=== PATIENT | male | born 1960 | race Caucasian/White ===

== ENCOUNTER 2019-04-05 21:17 | Emergency (ER) | payer SELFPAY ==
[2019-04-05] VITALS (21 sets, daily range): BP systolic 87–133; BP diastolic 51–88; PULSE 101–140; RESP 18–48; TEMP 33.2–35.3; O2SAT 70–100
--- NOTE | 2019-04-05 21:30 | ED.GENADULT ---
HPI - General Adult General Chief complaint: Shortness of Breath/Dyspnea Stated complaint: Shortness of breath Time Seen by Provider: 04/05/19 21:29 Source: EMS Mode of arrival: EMS Limitations: no limitations History of Present Illness HPI narrative: Acutely ill 58-year-old man presents by medics. Acute respiratory distress hypothermic unable to speak due to respiratory distress. His helps with history. Apparently he has been declining over the last month and has lost between 10 and 15 lb. He was seen by his primary care physician approximately 2 weeks ago and started on 2 L of oxygen for his severe COPD. He has managed to quit smoking. Over the 2 weeks he has continued to decline. The did have an appointment to see a physician last week but were unable to make that due to snow. His has wanted him to come to the emergency room for a number of days and he has declined. She decided to call 911 today as he continued to obviously worsen. BiPAP this started upon arrival. Tried to discuss code status. His mental status is altered enough that he is unable to carry on this conversation. His is not sure what he would say but thinks that likely would not like significant intervention. Will continue to address this is we are proceeding with his emergency department resuscitation Related Data Home Medications Medication Instructions Recorded Confirmed albuterol sulfate [Ventolin HFA] 2 puff INHALATION 6XD PRN 04/05/19 04/05/19 guaifenesin [Mucinex] 1,200 mg PO BID 04/05/19 04/05/19 Allergies Allergy/AdvReac Type Severity Reaction Status Date / Time codeine Allergy Unknown Verified 04/05/19 21:20 Review of Systems Review of Systems Narrative: Acutely altered mental status ROS Unobtainable: Unobtainable due to medical condition Patient History Medical History COPD (chronic obstructive pulmonary disease) (Acute) Fatigue (Acute) Palpitations (Acute) Social History Smoking Status: Former smoker Smoking Status: Former smoker Exam Narrative Exam Narrative: Presents with significant respiratory distress, unable to speak, significant weakness and altered mental status. Is cachectic, pale and extraordinarily cold to the touch. H EENT: Productive cough with sputum in around his yanez. Pupils are midposition equal and minimally reactive. No cervical adenopathy. Right earlobe has a 2 cm cyst Neck: No jugular venous distension Chest: Significantly diminished breath sounds on the right side with diffuse wheeze and extraordinarily poor air movement throughout all lung velásquez. He is using all accessory muscles to breathe and unable to speak Cardiac: Tachycardia, regular, distant heart sounds Abdomen: Nontender, no obvious hepatomegaly, no bowel tones Flank; no pain to palpation bilaterally Back spine pelvis: No evidence of trauma. Skin: Pale, dusky extremities with mottling noted Neuro: Acutely altered mental status, he is moving all extremities Extremities: 2+ bilateral lower extremity edema, very pale, poor perfusion Initial Vital Signs Initial Vital Signs: Vital Signs Temperature 91.7 F L 04/05/19 21:17 Pulse Rate 117 H 04/05/19 21:17 Respiratory Rate 28 H 04/05/19 21:17 Blood Pressure 111/51 L 04/05/19 21:17 Procedures Central Line Placement Right IJ: Additional Comments: Right internal jugular central line placed by Dr. Barajas, surgeon. Ultrasound guidance used. Postprocedure x-ray suggests that the line is in to the atrium and possibly into the inferior vena cava. Line is pulled back 3 cm after chest x-ray is viewed and redressed Chest Tube Chest Tube 1: Chest Tube Location: right Progress: Chest tube placed by Dr. Barajas, surgeon, for empyema. Postprocedure x-ray reveals tube in appropriate location with approximately 2-3 L of puritic/bloody pleural fluid returned [facility] [place] Name of Procedure: Right-sided thoracentesis Time out performed: Yes Technique/Description of procedure performed: Ultrasound-guided right thoracentesis for diagnostic and therapeutic purposes Area was identified with ultrasound after reviewing chest x-ray. Prepped and draped in a sterile manner. 3 cc of lidocaine is infiltrated into the skin down to the pleura. Thoracentesis needle is easily introduced into the large fluid collection. 1200 cc of bloody purulence at pleural fluid is returned. It is sent for culture, Gram stain, cytology. He tolerated the procedure well, breathing was easier postprocedure. Postprocedure chest x-ray indicates slightly more lung expansion, no pneumothorax and still large volume of fluid in the right side of the chest Patient tolerated procedure: Well and No complications Course Course Course Narrative: 58-year-old gentleman in acute respiratory distress presents to the emergency room. On initial presentation he is significantly cold, mottled, has altered mental status and appears cachectic. His notes that he has been worsening for the past 2 weeks and has not want to have any intervention. When he family became minimally responsive she was able to call [address] him immediately on BiPAP which he tolerated quite well. Also had a clear discussion of code status with both the patient and his . His altered mental status did not allow him to participate. She felt that he probably would not want have any extraordinary interventions such as CPR or intubation but she was not willing to make a final decision and he was unable to meaningfully participate in the discussion. Which shared decision making with the we opted to try aggressive treatments outside of intubation initially and reassess. Initial presumption was sepsis from a pulmonary source. Sepsis protocol was initiated with broad-spectrum antibiotics and large volumes fluid resuscitation. Because he was so cold the Wild catheter with temperature monitor was placed. Initial temperature was 33? C. a [place] was placed and warm fluids were used for initial resuscitation. He continued to tolerate BiPAP well. Initial ABG revealed a pH of 7.13 with a CO2 of 100 consistent with his overall clinical presentation and altered mental status. Oxygenation was not an issue and minimal oxygen supplementation only was required to keep saturations in the mid 90s. He did respond nicely to the 1st 2 L of fluid, rewarming and BiPAP. As labs and diagnostic studies began to return. His chest x-ray was noted to have a large right pleural effusion essentially occluding the entire right thorax. Decision was made to perform a diagnostic and therapeutic thoracentesis. Please see procedure note. Fluid was obviously purulence as well as bloody. Clearly an empyema with concern for neoplasm as well. Fluid was sent for culture Gram stain and cytology. Labs were further reviewed and indicated hyperkalemia, hyponatremia, acute renal failure and lactic acid of 2.4. At this time he was continuing to respond to BiPAP, core temperature had improved, he was slightly more responsive, and blood pressure was maintaining systolics in the 90s. He continued to be tachycardic with an atrial flutter. 10 mg of diltiazem was given to see if rate control would be helpful. It did bring his rate down into the 120s and did not significantly affect blood pressure. The large empyema was reviewed with Dr. Barajas, surgeon. He agreed to place a chest tube in anticipation of transfer. Due to acuity in the rest of the department he also graciously agreed to place a central line. Attempts were begun to find an appropriate bed for this gentleman. Spoke with the night hospitalist at [facility] and she felt that his level of care would necessitate transfer. Beds were not available at [facility] in [facility] in [place]. Bed was available at [facility] in [place]. Spoke with Dr. Álvarez, documentation spec, at 1:23 a.m. he accepted the patient. Repeat ABG showed slightly improved pH to 7.24 with a CO2 down to 62.9 however patient was appearing to be more fatigued. In light of extended transport we opted to proceed with intubation prior to transport. 7.5 tube with placed without difficulty. Blood pressure continued to decline despite 5 L of normal saline. Minimal urine output with Wild catheter in place. Fluid is changed to LR and continued and norepinephrine is started for pressure control. [facility] transport is available and report is shared. Findings, care and plan are all reviewed with his prior to transport. At this time he remains full code. He is in critical condition with Central Line, Pressors, fluid resuscitation,antibiotics and chest tube, right side, all in place at time of transfer Decision to Admit Date: 04/05/19 Decision to Admit time: 23:02 Additional Information: Critical Care Time 67 minutes: Critical care time is separate from other billable procedures. This critical care time includes consultation with family and other consulting doctors, review of records, and interpretation of data from labs, EKGs and imaging as well as managements of acute respiratory failure, altered mental status, sepsis, acute renal failure, hyperkalemia, hypothermia, empyema, atrial flutter with rapid ventricular response, hypotension Orders Ordered: ED Orders 04/05/19 21:20 Complete Blood Count AUTO DIFF Stat Procalcitonin Stat Troponin & CK Cardiac Panel Stat 04/05/19 21:33 Arterial Blood Gas Stat BiPAP Ventilatory Support RT PROTOCOL 04/05/19 21:34 XR chest 1V Stat 04/05/19 21:43 Arterial Blood Gas Stat 04/05/19 21:45 Comprehensive Metabolic Panel Stat Lactate (Lactic Acid) Stat 04/05/19 21:46 Urinalysis and Microscopic Stat Urine Culture Stat 04/05/19 21:50 Blood Culture Stat 04/05/19 22:55 Body Fluid Culture Stat 04/05/19 23:41 XR chest 1V Stat 04/06/19 XR chest 1V Stat 04/06/19 00:51 Arterial Blood Gas Stat 04/06/19 01:01 Arterial Blood Gas Stat Discontinued Medications Albuterol/Ipratropium (Duoneb) 3 ml INH NOW ONE Stop: 04/05/19 22:09 Last Admin: 04/05/19 22:09 Dose: 3 ml Documented by: PACO Albuterol/Ipratropium (Duoneb) 3 ml INH NOW ONE Stop: 04/05/19 22:08 Last Admin: 04/05/19 22:10 Dose: 3 ml Documented by: PACO Albuterol/Ipratropium (Duoneb) 3 ml INH NOW ONE Stop: 04/05/19 22:09 Last Admin: 04/05/19 22:10 Dose: 3 ml Documented by: PACO Diltiazem HCl (Cardizem) 10 mg IV NOW ONE Stop: 04/05/19 23:51 Last Admin: 04/05/19 23:53 Dose: 10 mg Documented by: LEILA Diltiazem HCl (Cardizem) 10 mg IV NOW ONE Stop: 04/05/19 23:51 Last Admin: 04/06/19 01:02 Dose: Not Given Documented by: LEILA Sodium Chloride (Normal Saline 0.9%) 2,354.13 mls @ 784.71 mls/hr 30 ml/kg infuse over 3 hr (2354.13 ml) IV NOW ONE Stop: 04/06/19 00:32 Last Infusion: 04/06/19 02:48 Dose: 0 mls/hr Documented by: Admin: 04/05/19 21:56 Dose: 784.71 mls/hr Documented by: KOREY Cefepime HCl 2 gm/ Sodium (Chloride) 100 mls @ 200 mls/hr IV NOW ONE Stop: 04/05/19 21:34 Last Admin: 04/05/19 23:25 Dose: Not Given Documented by: LEILA Piperacillin/Tazobactam/Dextrose (Zosyn) 3.375 gm in 50 mls @ 100 mls/hr IV NOW ONE Stop: 04/05/19 23:09 Last Infusion: 04/05/19 23:25 Dose: 0 mls/hr Documented by: Admin: 04/05/19 22:47 Dose: 100 mls/hr Documented by: DAVIAN Sodium Chloride (Normal Saline 0.9%) 1,000 mls @ 1,000 mls/hr IV BOLUS ONE Stop: 04/06/19 01:49 Last Infusion: 04/06/19 02:49 Dose: 0 mls/hr Documented by: Admin: 04/06/19 01:46 Dose: 1,000 mls/hr Documented by: JACK Norepinephrine Bitartrate 4 mg (/ Dextrose) 254 mls @ 30.48 mls/hr IV TITRATE DAWNA; Protocol Last Admin: 04/06/19 01:46 Dose: 8 mcg/min, 30.48 mls/hr Documented by: JAKC Sodium Chloride (Normal Saline 0.9%) 1,000 mls @ 1,000 mls/hr IV BOLUS ONE Stop: 04/06/19 02:28 Last Infusion: 04/06/19 02:50 Dose: 0 mls/hr Documented by: Admin: 04/06/19 01:46 Dose: 1,000 mls/hr Documented by: JACK Lorazepam (Ativan) 0.5 mg IV NOW ONE Stop: 04/05/19 22:53 Last Admin: 04/05/19 22:40 Dose: 0.5 mg Documented by: LEILA Vital Signs Vital signs: Vital Signs - 8 hr 04/05/19 21:17 04/05/19 21:20 04/05/19 21:30 Temperature 91.7 F L 92.1 F L Pulse Rate 117 H 117 H 127 H Respiratory Rate 28 H 48 H 29 H Blood Pressure 111/51 L Blood Pressure [Right Arm] 111/51 L Pulse Oximetry 70 L 04/05/19 21:35 04/05/19 21:40 04/05/19 21:50 Temperature 93.6 F L 94.4 F L Pulse Rate 129 H 129 H Respiratory Rate 28 H 23 Blood Pressure 101/72 Blood Pressure [Right Arm] 106/74 107/74 Pulse Oximetry 100 94 04/05/19 22:00 04/05/19 22:11 04/05/19 22:15 Temperature 94.5 F L 94.5 F L Pulse Rate 133 H 134 H 101 H Respiratory Rate 28 H 30 H 33 H Blood Pressure 94/75 Blood Pressure [Right Arm] 103/88 102/73 133/84 Pulse Oximetry 98 99 95 04/05/19 22:18 04/05/19 22:29 04/05/19 22:40 Temperature 94.6 F L 94.7 F L Pulse Rate 138 H 132 H 134 H Respiratory Rate 38 H 33 H Blood Pressure Blood Pressure [Right Arm] 102/73 94/75 96/68 Pulse Oximetry 99 100 96 04/05/19 22:50 04/05/19 23:00 04/05/19 23:10 Temperature 94.8 F L 95 F L 95.2 F L Pulse Rate 136 H 136 H 137 H Respiratory Rate 34 H 35 H 41 H Blood Pressure Blood Pressure [Right Arm] 87/69 L 101/70 97/70 Pulse Oximetry 99 100 98 04/05/19 23:20 04/05/19 23:30 04/05/19 23:45 Temperature 95.4 F L 95.5 F L 95.6 F L Pulse Rate 133 H 132 H 138 H Respiratory Rate 33 H 36 H 31 H Blood Pressure Blood Pressure [Right Arm] 91/65 97/67 101/68 Pulse Oximetry 98 100 100 04/05/19 23:53 04/05/19 23:55 04/06/19 00:04 Temperature 95.5 F L 95.5 F L Pulse Rate 138 H 139 H 134 H Respiratory Rate 30 H 45 H Blood Pressure 103/69 Blood Pressure [Right Arm] 103/69 95/67 Pulse Oximetry 94 92 04/06/19 00:16 04/06/19 00:30 04/06/19 00:45 Temperature 95.5 F L Pulse Rate 118 H 133 H 140 H Respiratory Rate 29 H 31 H 31 H Blood Pressure Blood Pressure [Right Arm] 98/69 109/67 109/67 Pulse Oximetry 96 95 95 04/06/19 01:30 04/06/19 02:00 04/06/19 02:39 Temperature 96.9 F L Pulse Rate 124 H 112 H 145 H Respiratory Rate 22 13 12 Blood Pressure Blood Pressure [Right Arm] 83/54 L 102/72 94/68 Pulse Oximetry 95 100 100 Medical Decision Making Medical Records Medical records reviewed: Yes I reviewed the patient's medical records. Lab Data Lab results reviewed: Yes I reviewed the patient's lab results. Result diagrams: 04/05/19 21:20 04/05/19 21:45 Labs: Lab Results 04/05/19 04/05/19 04/05/19 Range/Units 21:20 21:20 21:20 WBC 22.4 H (4.5-11.0) X10^3/uL RBC 4.39 L (4.5-5.9) X10^6/uL Hgb 12.2 L (13.5-17.5) g/dL Hct 36.8 L (41-53) % MCV 83.9 (80-100) fL MCH 27.9 (26-34) PG MCHC 33.2 (30-36) % RDW 13.9 (11.6-14.8) % Plt Count 759 H (150-400) X10^3/uL Neut % (Auto) 81.6 H (50-75) % Lymph % (Auto) 4.0 L (25-40) % [place] % (Auto) 14.2 H (3-14) % Eos % (Auto) 0.1 L (2-4) % Baso % (Auto) 0.1 (0-2) % Neut # (Auto) 15867 H (3262-3267) /uL Lymph # (Auto) 900 L (7412-8601) /uL [place] # (Auto) 3200 H (0-900) /uL Eos # (Auto) 0 (0-450) /uL Baso # (Auto) 0 (0-100) /uL Dohle Bodies 1+ H Platelet Estimate Increased on smear RBC Morphology Normal morphology ABG pH (7.35-7.45) ABG pCO2 (35-45) mmHg ABG pO2 (80-100) mmHg ABG HCO3 (22-26) mmol/L ABG Total CO2 (21-31) mmol/L ABG O2 Saturation (95-100) % ABG Base Excess (-2-2) mmol/L FiO2 Sodium (137-145) mmol/L Potassium (3.4-5.1) mmol/L Chloride (98-107) mmol/L Carbon Dioxide (22-32) mmol/L BUN (9-20) mg/dL Creatinine (0.66-1.25) mg/dL Estimated GFR (>60) mL/min BUN/Creatinine Ratio (6-22) Glucose (80-110) mg/dL Lactate (0.7-2.1) mmol/L Calcium (8.4-10.2) mg/dL Total Bilirubin (0.2-1.3) mg/dL AST (17-59) IU/L ALT (<50) IU/L Alkaline Phosphatase (38-126) U/L Total Creatine Kinase 29 L (55-170) U/L CK-MB (CK-2) TNP CK-MB (CK-2) Rel Index TNP Troponin I < 0.012 (0.01-0.034) ng/mL Total Protein (6.3-8.2) g/dL Albumin (3.5-5.0) g/dL Globulin (1.7-4.1) g/dL Albumin/Globulin Ratio (1.0-2.8) Procalcitonin 2.00 H (<0.5) ng/mL Urine Color Urine Appearance Urine pH (4.5-8.0) Ur Specific [place] (1.000-1.035) Urine Protein (Negative) Urine Glucose (UA) (Negative) g/dL Urine Ketones (NEGATIVE) Urine Occult Blood (Negative) Urine Nitrate (Negative) Urine Bilirubin (NEGATIVE) Urine Urobilinogen (0.2) E.U./dL Ur Leukocyte Esterase (NEGATIVE) Urine RBC (0-5/HPF) Urine WBC (0-5/HPF) Ur Squamous Epith Cells (0-5/HPF) Ur Transition Epith Cell (0-5/HPF) Ur Renal Epithelial Cell (0-1/HPF) Amorphous Sediment Urine Bacteria (None) Hyaline Casts (None) Ur Culture Indicated? 04/05/19 04/05/19 04/05/19 Range/Units 21:43 21:45 21:45 WBC (4.5-11.0) X10^3/uL RBC (4.5-5.9) X10^6/uL Hgb (13.5-17.5) g/dL Hct (41-53) % MCV (80-100) fL MCH (26-34) PG MCHC (30-36) % RDW (11.6-14.8) % Plt Count (150-400) X10^3/uL Neut % (Auto) (50-75) % Lymph % (Auto) (25-40) % [place] % (Auto) (3-14) % Eos % (Auto) (2-4) % Baso % (Auto) (0-2) % Neut # (Auto) (7836-4589) /uL Lymph # (Auto) (7275-8329) /uL [place] # (Auto) (0-900) /uL Eos # (Auto) (0-450) /uL Baso # (Auto) (0-100) /uL Dohle Bodies Platelet Estimate RBC Morphology ABG pH 7.13 L* (7.35-7.45) ABG pCO2 100.5 H* (35-45) mmHg ABG pO2 109 H (80-100) mmHg ABG HCO3 33 H (22-26) mmol/L ABG Total CO2 36 H (21-31) mmol/L ABG O2 Saturation 95 (95-100) % ABG Base Excess 4.0 H (-2-2) mmol/L FiO2 0.50 Sodium 124 L (137-145) mmol/L Potassium 5.9 H (3.4-5.1) mmol/L Chloride 82 L (98-107) mmol/L Carbon Dioxide 29 (22-32) mmol/L BUN 53 H (9-20) mg/dL Creatinine 2.10 H (0.66-1.25) mg/dL Estimated GFR 32.4 L (>60) mL/min BUN/Creatinine Ratio 25.2 H (6-22) Glucose 177 H (80-110) mg/dL Lactate 2.4 H (0.7-2.1) mmol/L Calcium 9.9 (8.4-10.2) mg/dL Total Bilirubin 0.5 (0.2-1.3) mg/dL AST 24 (17-59) IU/L ALT 15 (<50) IU/L Alkaline Phosphatase 159 H (38-126) U/L Total Creatine Kinase (55-170) U/L CK-MB (CK-2) CK-MB (CK-2) Rel Index Troponin I (0.01-0.034) ng/mL Total Protein 7.9 (6.3-8.2) g/dL Albumin 3.5 (3.5-5.0) g/dL Globulin 4.4 H (1.7-4.1) g/dL Albumin/Globulin Ratio 0.8 L (1.0-2.8) Procalcitonin (<0.5) ng/mL Urine Color Urine Appearance Urine pH (4.5-8.0) Ur Specific [place] (1.000-1.035) Urine Protein (Negative) Urine Glucose (UA) (Negative) g/dL Urine Ketones (NEGATIVE) Urine Occult Blood (Negative) Urine Nitrate (Negative) Urine Bilirubin (NEGATIVE) Urine Urobilinogen (0.2) E.U./dL Ur Leukocyte Esterase (NEGATIVE) Urine RBC (0-5/HPF) Urine WBC (0-5/HPF) Ur Squamous Epith Cells (0-5/HPF) Ur Transition Epith Cell (0-5/HPF) Ur Renal Epithelial Cell (0-1/HPF) Amorphous Sediment Urine Bacteria (None) Hyaline Casts (None) Ur Culture Indicated? 04/05/19 04/06/19 04/06/19 Range/Units 21:46 01:01 01:50 WBC (4.5-11.0) X10^3/uL RBC (4.5-5.9) X10^6/uL Hgb (13.5-17.5) g/dL Hct (41-53) % MCV (80-100) fL MCH (26-34) PG MCHC (30-36) % RDW (11.6-14.8) % Plt Count (150-400) X10^3/uL Neut % (Auto) (50-75) % Lymph % (Auto) (25-40) % [place] % (Auto) (3-14) % Eos % (Auto) (2-4) % Baso % (Auto) (0-2) % Neut # (Auto) (5765-1040) /uL Lymph # (Auto) (1473-9614) /uL [place] # (Auto) (0-900) /uL Eos # (Auto) (0-450) /uL Baso # (Auto) (0-100) /uL Dohle Bodies Platelet Estimate RBC Morphology ABG pH 7.25 L* (7.35-7.45) ABG pCO2 62.9 H* (35-45) mmHg ABG pO2 71 L (80-100) mmHg ABG HCO3 28 H (22-26) mmol/L ABG Total CO2 29 (21-31) mmol/L ABG O2 Saturation 90 L (95-100) % ABG Base Excess 0.0 (-2-2) mmol/L FiO2 0.28 Sodium (137-145) mmol/L Potassium (3.4-5.1) mmol/L Chloride (98-107) mmol/L Carbon Dioxide (22-32) mmol/L BUN (9-20) mg/dL Creatinine (0.66-1.25) mg/dL Estimated GFR (>60) mL/min BUN/Creatinine Ratio (6-22) Glucose (80-110) mg/dL Lactate 3.2 H (0.7-2.1) mmol/L Calcium (8.4-10.2) mg/dL Total Bilirubin (0.2-1.3) mg/dL AST (17-59) IU/L ALT (<50) IU/L Alkaline Phosphatase (38-126) U/L Total Creatine Kinase (55-170) U/L CK-MB (CK-2) CK-MB (CK-2) Rel Index Troponin I (0.01-0.034) ng/mL Total Protein (6.3-8.2) g/dL Albumin (3.5-5.0) g/dL Globulin (1.7-4.1) g/dL Albumin/Globulin Ratio (1.0-2.8) Procalcitonin (<0.5) ng/mL Urine Color Yellow Urine Appearance Sl cloudy Urine pH 5.0 (4.5-8.0) Ur Specific [place] 1.025 (1.000-1.035) Urine Protein 1+ H (Negative) Urine Glucose (UA) Negative (Negative) g/dL Urine Ketones Negative (NEGATIVE) Urine Occult Blood Trace-intact (Negative) Urine Nitrate Negative (Negative) Urine Bilirubin Negative (NEGATIVE) Urine Urobilinogen 0.2 (0.2) E.U./dL Ur Leukocyte Esterase Negative (NEGATIVE) Urine RBC 0-1/hpf (0-5/HPF) Urine WBC 5-10/hpf H (0-5/HPF) Ur Squamous Epith Cells 0-1 /hpf (0-5/HPF) Ur Transition Epith Cell 0-1/hpf (0-5/HPF) Ur Renal Epithelial Cell 0-1/hpf (0-1/HPF) Amorphous Sediment 1+ Urine Bacteria Occasional (0-1) (None) Hyaline Casts 10-30/lpf (None) Ur Culture Indicated? Specimen cultured Imaging Data Chest x-ray: Attestation: I personally reviewed and interpreted this imaging study as follows: My Impression: Large right pleural effusion with significant airway compromise Chest x-ray 2.: Post thoracentesis. More aerated lung in the superior lobes still large pleural effusion, no pneumothorax. Chest x-ray 3.: Post right-sided chest tube, intubation and central line. Central line is low and pulled back 3 cm. Endotracheal tube is high and is advanced 2 cm. Chest tube appears to be in appropriate position ECG Data Attestation: I personally reviewed and interpreted this ECG as follows: Interpretation: Rate of [address] T-wave changes suggesting ischemia Discharge Plan Departure Patient Disposition: [facility] Clinical Impression: Empyema lung, Atrial fibrillation with rapid ventricular response, Acute hyponatremia Respiratory failure Qualifiers: Chronicity: acute Respiratory failure complication: hypoxia and hypercapnia Qualified Code(s): J96.01 - Acute respiratory failure with hypoxia Hypothermia Qualifiers: Encounter type: initial encounter Qualified Code(s): T68.XXXA - Hypothermia, initial encounter Sepsis Qualifiers: Sepsis type: sepsis due to unspecified organism Sepsis acute organ dysfunction status: with acute organ dysfunction Severe sepsis acute organ dysfunction type: acute respiratory failure Acute respiratory failure type: with hypercapnia Severe sepsis shock status: without septic shock Qualified Code(s): A41.9 - Sepsis, unspecified organism Acute renal failure Qualifiers: Acute renal failure type: unspecified Qualified Code(s): N17.9 - Acute kidney failure, unspecified Discharge Date/Time: 04/06/19 02:51 Prescriptions: No Action albuterol sulfate [Ventolin HFA] 90 mcg/actuation Hfa Aerosol Inhaler 2 puff INHALATION 6XD PRN (Reason: Shortness Of Breath) RF: 0 guaifenesin [Mucinex] 1,200 mg Tablet Extended Release 12hr 1,200 mg PO BID RF: 0
--- NOTE | 2019-04-05 21:34 | DI.RAD.S_ITS ---
PROCEDURE: XR CHEST 1V INDICATIONS: Respiratory distress TECHNIQUE: One view of the chest was acquired. COMPARISON: [facility], , CHEST 2 VIEW, 11/06/2009, 14:29. [facility], CR, XR CHEST 1V, 04/05/2019, 23:44. [facility], CR, XR CHEST 1V, 04/06/2019, 1:23. FINDINGS: Surgical changes and devices: None. Lungs and pleura: Large right-sided pleural fluid collection. Streaky opacity noted in the left lung base. Mediastinum: Mediastinal contours appear normal. Heart size is normal. Bones and chest wall: No suspicious bony lesions. Overlying soft tissues appear unremarkable. IMPRESSION: Large right-sided pleural fluid collection. Dictated by: Rissa Vo MD, PhD on 04/06/2019 at 10:06 Approved by: Rissa Vo MD, PhD on 04/06/2019 at 10:08
[2019-04-05 21:46] LABS: Add Manual Diff / Slide Review NO; Basophils Absolute Auto 0 /uL (0-100); Basophils Percent Auto 0.1 % (0-2); Eosinophils Absolute Auto 0 /uL (0-450); Eosinophils Percent Auto 0.1 % (2-4); Hematocrit 36.8 % (41-53); Hemoglobin 12.2 g/dL (13.5-17.5); Lymphocytes Absolute Auto 900 /uL (1100-4500); Mean Corpuscular HGB Conc 33.2 % (30-36); Mean Corpuscular Hemoglobin 27.9 PG (26-34); Mean Corpuscular Volume 83.9 fL (80-100); Monocytes Absolute Auto 3200 /uL (0-900); Monocytes Percent Auto 14.2 % (3-14); Neutrophils Absolute Auto 18300 /uL (1500-7000); Neutrophils Percent Auto 81.6 % (50-75); Platelet Count 759 X10^3/uL (150-400); Red Blood Cell Count 4.39 X10^6/uL (4.5-5.9); Red Cell Distribution Width 13.9 % (11.6-14.8); White Blood Cell Count 22.4 X10^3/uL (4.5-11.0)
[2019-04-05 21:54] LABS: Creatine Kinase 29 U/L (55-170)
[2019-04-05 21:56] LABS: Appearance Urine UA SL CLOUDY; Bilirubin Urine UA NEGATIVE (NEGATIVE); Color Urine UA YELLOW; Glucose Urine UA NEGATIVE (Negative); Ketones Urine UA NEGATIVE (NEGATIVE); Leukocyte Esterase Urine UA NEGATIVE (NEGATIVE); Nitrite Urine UA NEGATIVE (Negative); Occult Blood Urine UA TRACE-INTACT (Negative); Protein Urine UA 1+ (Negative); Specific Gravity Urine UA 1.025 (1.000-1.035); Urobilinogen Urine UA 0.2 E.U./dL (0.2)
[2019-04-05] MEDS: SODIUM CHLORIDE 0.9% 784.71 ML IV (21:56)
[2019-04-05 22:01] LABS: Alanine Aminotransferase 15 IU/L (<50); Albumin 3.5 g/dL (3.5-5.0); Albumin Globulin Ratio 0.8 (1.0-2.8); Alkaline Phosphatase 159 U/L (38-126); Aspartate Aminotransferase 24 IU/L (17-59); Bilirubin Total 0.5 mg/dL (0.2-1.3); Blood Urea Nitrogen 53 mg/dL (9-20); Calcium 9.9 mg/dL (8.4-10.2); Carbon Dioxide 29 mmol/L (22-32); Chloride 82 mmol/L (98-107); Globulin 4.4 g/dL (1.7-4.1); Glucose 177 mg/dL (80-110); HEMOLYSIS < 15 (0-50); Sodium 124 mmol/L (137-145); Total Protein 7.9 g/dL (6.3-8.2)
[2019-04-05 22:02] LABS: Potassium 5.9 mmol/L (3.4-5.1)
[2019-04-05 22:02] LABS: Amorphous Sediment Urine 1+; RBC Urine 0-1/HPF (0-5/HPF); Renal Epithelial Cells Urine 0-1/HPF (0-1/HPF); Squamous Epithelial Cell Urine 0-1 /HPF (0-5/HPF); Transitional Epi Cells Urine 0-1/HPF (0-5/HPF); WBC Urine 5-10/HPF (0-5/HPF)
[2019-04-05 22:03] LABS: Lactate (Lactic Acid) 2.4 mmol/L (0.7-2.1)
[2019-04-05 22:03] LABS: Bacteria Urine Occasional (0-1); Culture Indicated Urine Specimen Cultured; Hyaline Casts Urine 10-30/LPF
[2019-04-05 22:06] LABS: Dohle Bodies 1+; Platelet Estimate Increased on smear; RBC Morphology Normal Morphology
[2019-04-05 22:07] LABS: Troponin I < 0.012 ng/mL (0.01-0.034)
[2019-04-05 22:07] LABS: BUN Creatinine Ratio 25.2 (6-22); Estimated Glomerular Filt Rate 32.4 mL/min (>60)
[2019-04-05] MEDS: ALBUTEROL/IPRATROPIUM 3 ML AMPUL INH ×3 (22:09→22:10)
[2019-04-05 22:14] LABS: HCO3 ABG 33 mmol/L (22-26); Oxygen Saturation ABG 95 % (95-100); PCO2 ABG 100.5 mmHg (35-45); PO2 ABG 109 mmHg (80-100); TCO2 ABG 36 mmol/L (21-31); pH ABG 7.13 (7.35-7.45)
--- NOTE | 2019-04-05 22:25 | PC.NURSE ---
Pt arrived to ED in severe respiratory distress w/ decreased breath sounds (Right more decreased than Left) full accessory muscle use, tripoding, diaphoretic, unresponsive to general stimulation with eyes open but does not appear to hear us. Noted to be very cold. IV established, Bipap initiated, EKG completed, Core temp obtained and rewarming procedures begun. does not know what patient would want in terms of code status and pt is unable to respond. Chest x ray obtained w/ Right lung white out. Dr. Archer set up for thorascentisis.
[2019-04-05] MEDS: LORazepam 2 MG/ML INJ 0.5 MG IV (22:40)
[2019-04-05] MEDS: PIPERACILLIN-TAZO 3.375 GM/50 ML FROZ.PIGGY IV (22:47)
--- NOTE | 2019-04-05 23:28 | PC.NURSE ---
[place]. Patient's core body temp is 95.4. Warm blankets applied.
--- NOTE | 2019-04-05 23:33 | PC.NURSE ---
Patient received a thoracentesis of Right Lung by Dr. Archer. Consent was signed by , Dr. Archer, and this EDRN at 2230. Patient is awake and alert at this time however is agitated and anxious. Verbal order given for 0.5mg ativan IV at this time prior to procedure to provide some relief of anxiety. RT at bedside to monitor breathing during procedure. Timeout called at 2240 and site verified and marked by Dr. Archer using a bedside Ultrasound. Procedure was performed using sterile procedure by Dr. Archer and 1200cc of cloudy/purulent drainage was removed from right lung from [id number]. Samples sent to lab. patient tolerated procedure without complaint. Vital signs remained stable throughout. Patient is calm and sleeping after procedure at 2315.
--- NOTE | 2019-04-05 23:41 | DI.RAD.S_ITS ---
PROCEDURE: XR CHEST 1V INDICATIONS: post thoracentesis TECHNIQUE: One view of the chest was acquired. COMPARISON: [facility], , XR CHEST 1V, 04/05/2019, 21:55. FINDINGS: Surgical changes and devices: None. Lungs and pleura: Large right-sided pleural fluid collection decreased in size compared to 04/05/19 compatible thoracocentesis. No pneumothorax. Mediastinum: Mediastinal contours appear normal. Heart size is normal. Bones and chest wall: No suspicious bony lesions. Overlying soft tissues appear unremarkable. IMPRESSION: No pneumothorax following thoracentesis. Dictated by: Rissa Vo MD, PhD on 04/06/2019 at 10:08 Approved by: Rissa Vo MD, PhD on 04/06/2019 at 10:08
[2019-04-05 23:50] LABS: Reflexed Lactate in 2 Hours Y
[2019-04-05] MEDS: dilTIAZem 5 MG/ML SDV 10 MG IV (23:53)
[2019-04-06] VITALS (7 sets, daily range): BP systolic 83–109; BP diastolic 54–72; PULSE 112–145; RESP 12–45; TEMP 35.3–36.1; O2SAT 92–100
--- NOTE | 2019-04-06 | DI.RAD.S_ITS ---
PROCEDURE: XR CHEST 1V INDICATIONS: POST INTUBATION AND CENTRAL LINE PLACEMENT TECHNIQUE: One view of the chest was acquired. COMPARISON: [facility], , XR CHEST 1V, 04/05/2019, 23:44. FINDINGS: Surgical changes and devices: Right-sided chest tube has been placed. Central venous catheter is in place with projects in the distal SVC via a right IJ approach. ET tube projects 9.3 cm superior to antony. Lungs and pleura: Lungs are clear. No pneumothorax. The right-sided pleural fluid collection decreased in size compared to prior examination with moderate persistent fluid volume. Mediastinum: Mediastinal contours appear normal. Heart size is normal. Bones and chest wall: No suspicious bony lesions. Overlying soft tissues appear unremarkable. IMPRESSION: ET tube at 9.3 cm superior to the antony. Status post placement of right-sided chest tube. Moderate-sized persistent right pleural fluid collection. Dictated by: Rissa Vo MD, PhD on 04/06/2019 at 10:09 Approved by: Rissa Vo MD, PhD on 04/06/2019 at 10:10
--- NOTE | 2019-04-06 01:05 | PC.NURSE ---
Dr. Barajas at bedside prepping for central line and then chest tube placement at this time. RT and PRANAY Hopkins at bedside. Care of patient transferred to PRANAY Hopkins. Consent signed and at bedside.
[2019-04-06 01:14] LABS: HCO3 ABG 28 mmol/L (22-26); Oxygen Saturation ABG 90 % (95-100); PCO2 ABG 62.9 mmHg (35-45); PO2 ABG 71 mmHg (80-100); TCO2 ABG 29 mmol/L (21-31); pH ABG 7.25 (7.35-7.45)
[2019-04-06 01:15] LABS: Fractionated Inspired Oxygen 0.28
--- NOTE | 2019-04-06 01:38 | PM.CN ---
History of Present Illness Consult details Date Patient Seen: 04/06/19 Chief complaint: Shortness of breath Reason for consult: Right empyema Narrative: This is a 58-year-old male with COPD who presented to the emergency room with respiratory failure and complete whiteout of his right lung. The emergency department perform thoracentesis with removal of about 2 L of turbid appearing fluid on but despite this his respiratory status remained tenuous and I was asked emergently to place a right-sided chest tube. Little medical history is available at this time and the patient is unable to provide any information as he is hypoxic on BiPAP and intubations pending. Apparently is some long-term smoker has been having significant amount of weight loss progressive shortness of breath and today became acutely worse his had a brought to the hospital by EMS. Meds Home Medications and Allergies Home Medications Medication Instructions Recorded Confirmed Type albuterol sulfate [Ventolin HFA] 2 puff INHALATION 6XD PRN 04/05/19 04/05/19 History guaifenesin [Mucinex] 1,200 mg PO BID 04/05/19 04/05/19 History Allergies Allergy/AdvReac Type Severity Reaction Status Date / Time codeine Allergy Unknown Verified 04/05/19 21:20 Review of Systems Review of Systems ROS Unobtainable: unobtainable due to mental condition Exam Vital Signs (past 8 hours): - 04/05/19 21:17 04/05/19 21:20 04/05/19 21:30 Temperature 91.7 F L 92.1 F L Pulse Rate 117 H 117 H 127 H Respiratory Rate 28 H 48 H 29 H Blood Pressure 111/51 L Blood Pressure [Right Arm] 111/51 L Pulse Oximetry 70 L 04/05/19 21:35 04/05/19 21:40 04/05/19 21:50 Temperature 93.6 F L 94.4 F L Pulse Rate 129 H 129 H Respiratory Rate 28 H 23 Blood Pressure 101/72 Blood Pressure [Right Arm] 106/74 107/74 Pulse Oximetry 100 94 04/05/19 22:00 04/05/19 22:11 04/05/19 22:15 Temperature 94.5 F L 94.5 F L Pulse Rate 133 H 134 H 101 H Respiratory Rate 28 H 30 H 33 H Blood Pressure 94/75 Blood Pressure [Right Arm] 103/88 102/73 133/84 Pulse Oximetry 98 99 95 04/05/19 22:18 04/05/19 22:29 04/05/19 22:40 Temperature 94.6 F L 94.7 F L Pulse Rate 138 H 132 H 134 H Respiratory Rate 38 H 33 H Blood Pressure Blood Pressure [Right Arm] 102/73 94/75 96/68 Pulse Oximetry 99 100 96 04/05/19 22:50 04/05/19 23:00 04/05/19 23:10 Temperature 94.8 F L 95 F L 95.2 F L Pulse Rate 136 H 136 H 137 H Respiratory Rate 34 H 35 H 41 H Blood Pressure Blood Pressure [Right Arm] 87/69 L 101/70 97/70 Pulse Oximetry 99 100 98 04/05/19 23:20 04/05/19 23:30 04/05/19 23:45 Temperature 95.4 F L 95.5 F L 95.6 F L Pulse Rate 133 H 132 H 138 H Respiratory Rate 33 H 36 H 31 H Blood Pressure Blood Pressure [Right Arm] 91/65 97/67 101/68 Pulse Oximetry 98 100 100 04/05/19 23:53 04/05/19 23:55 04/06/19 00:04 Temperature 95.5 F L 95.5 F L Pulse Rate 138 H 139 H 134 H Respiratory Rate 30 H 45 H Blood Pressure 103/69 Blood Pressure [Right Arm] 103/69 95/67 Pulse Oximetry 94 92 04/06/19 00:16 04/06/19 00:30 04/06/19 00:45 Temperature 95.5 F L Pulse Rate 118 H 133 H 140 H Respiratory Rate 29 H 31 H 31 H Blood Pressure Blood Pressure [Right Arm] 98/69 109/67 109/67 Pulse Oximetry 96 95 95 Fraction of Inspired Oxygen 0.28 Oxygen Delivery Method BiPAP Narrative Exam Narrative: General elderly cachectic male in acute respiratory distress HEENT-moist mucous membranes, no scleral icterus Neck-supple, no lymphadenopathy Chest-labored respirations wearing BiPAP right lung sounds with diminished compared to her left Cardiac-tachycardic to 140 Abdomen-soft, nontender, non distended Extremities-pulses all 4 extremities Neurological disoriented responsive to pain Objective Labs Result Diagrams: 04/05/19 21:20 04/05/19 21:45 Labs: Laboratory Results - last 24 hr 04/05/19 04/05/19 04/05/19 21:20 21:20 21:20 WBC 22.4 H RBC 4.39 L Hgb 12.2 L Hct 36.8 L MCV 83.9 MCH 27.9 MCHC 33.2 RDW 13.9 Plt Count 759 H Neut % (Auto) 81.6 H Lymph % (Auto) 4.0 L [place] % (Auto) 14.2 H Eos % (Auto) 0.1 L Baso % (Auto) 0.1 Neut # (Auto) 69639 H Lymph # (Auto) 900 L [place] # (Auto) 3200 H Eos # (Auto) 0 Baso # (Auto) 0 Dohle Bodies 1+ H Platelet Estimate Increased on smear RBC Morphology Normal morphology ABG pH ABG pCO2 ABG pO2 ABG HCO3 ABG Total CO2 ABG O2 Saturation ABG Base Excess FiO2 Sodium Potassium Chloride Carbon Dioxide BUN Creatinine Estimated GFR BUN/Creatinine Ratio Glucose Lactate Calcium Total Bilirubin AST ALT Alkaline Phosphatase Total Creatine Kinase 29 L CK-MB (CK-2) TNP CK-MB (CK-2) Rel Index TNP Troponin I < 0.012 Total Protein Albumin Globulin Albumin/Globulin Ratio Procalcitonin 2.00 H Urine Color Urine Appearance Urine pH Ur Specific [place] Urine Protein Urine Glucose (UA) Urine Ketones Urine Occult Blood Urine Nitrate Urine Bilirubin Urine Urobilinogen Ur Leukocyte Esterase Urine RBC Urine WBC Ur Squamous Epith Cells Ur Transition Epith Cell Ur Renal Epithelial Cell Amorphous Sediment Urine Bacteria Hyaline Casts Ur Culture Indicated? 04/05/19 04/05/19 04/05/19 21:43 21:45 21:45 WBC RBC Hgb Hct MCV MCH MCHC RDW Plt Count Neut % (Auto) Lymph % (Auto) [place] % (Auto) Eos % (Auto) Baso % (Auto) Neut # (Auto) Lymph # (Auto) [place] # (Auto) Eos # (Auto) Baso # (Auto) Dohle Bodies Platelet Estimate RBC Morphology ABG pH 7.13 L* ABG pCO2 100.5 H* ABG pO2 109 H ABG HCO3 33 H ABG Total CO2 36 H ABG O2 Saturation 95 ABG Base Excess 4.0 H FiO2 0.50 Sodium 124 L Potassium 5.9 H Chloride 82 L Carbon Dioxide 29 BUN 53 H Creatinine 2.10 H Estimated GFR 32.4 L BUN/Creatinine Ratio 25.2 H Glucose 177 H Lactate 2.4 H Calcium 9.9 Total Bilirubin 0.5 AST 24 ALT 15 Alkaline Phosphatase 159 H Total Creatine Kinase CK-MB (CK-2) CK-MB (CK-2) Rel Index Troponin I Total Protein 7.9 Albumin 3.5 Globulin 4.4 H Albumin/Globulin Ratio 0.8 L Procalcitonin Urine Color Urine Appearance Urine pH Ur Specific [place] Urine Protein Urine Glucose (UA) Urine Ketones Urine Occult Blood Urine Nitrate Urine Bilirubin Urine Urobilinogen Ur Leukocyte Esterase Urine RBC Urine WBC Ur Squamous Epith Cells Ur Transition Epith Cell Ur Renal Epithelial Cell Amorphous Sediment Urine Bacteria Hyaline Casts Ur Culture Indicated? 04/05/19 04/06/19 21:46 01:01 WBC RBC Hgb Hct MCV MCH MCHC RDW Plt Count Neut % (Auto) Lymph % (Auto) [place] % (Auto) Eos % (Auto) Baso % (Auto) Neut # (Auto) Lymph # (Auto) [place] # (Auto) Eos # (Auto) Baso # (Auto) Dohle Bodies Platelet Estimate RBC Morphology ABG pH 7.25 L* ABG pCO2 62.9 H* ABG pO2 71 L ABG HCO3 28 H ABG Total CO2 29 ABG O2 Saturation 90 L ABG Base Excess 0.0 FiO2 0.28 Sodium Potassium Chloride Carbon Dioxide BUN Creatinine Estimated GFR BUN/Creatinine Ratio Glucose Lactate Calcium Total Bilirubin AST ALT Alkaline Phosphatase Total Creatine Kinase CK-MB (CK-2) CK-MB (CK-2) Rel Index Troponin I Total Protein Albumin Globulin Albumin/Globulin Ratio Procalcitonin Urine Color Yellow Urine Appearance Sl cloudy Urine pH 5.0 Ur Specific [place] 1.025 Urine Protein 1+ H Urine Glucose (UA) Negative Urine Ketones Negative Urine Occult Blood Trace-intact Urine Nitrate Negative Urine Bilirubin Negative Urine Urobilinogen 0.2 Ur Leukocyte Esterase Negative Urine RBC 0-1/hpf Urine WBC 5-10/hpf H Ur Squamous Epith Cells 0-1 /hpf Ur Transition Epith Cell 0-1/hpf Ur Renal Epithelial Cell 0-1/hpf Amorphous Sediment 1+ Urine Bacteria Occasional (0-1) Hyaline Casts 10-30/lpf Ur Culture Indicated? Specimen cultured Assessment & Plan Assessment & Plan narrative: This is a 58-year-old male with acute respiratory failure, shock and a massive right pleural effusion likely malignant. Thoracentesis was been performed by the emergency department with removal about 2 L of turbid fluid but despite this he remains in tenuous respiratory status. I've been asked to place a right-sided chest tube which is indicated as well as a central line. Reviewed his x-ray which demonstrates essentially a whiteout of his right lung field improved after the thoracentesis but there's a significant amount of fluid that remains. I discussed the nature of the procedures right chest tube placement and central line placement with the patient's and we discussed the risks of these procedures including bleeding infection pneumothorax need for further procedure. Her questions have been answered and she gives consent for these procedures. Central line was placed via a right internal jugular access by ultrasound guidance. A right 32 [place] chest tube was placed in the 5th intercostal space in the mid the axillary line with drainage of approximately 2 L of foul-smelling turbid fluid. At this time the plan is for intubation and transfer to an outside facility for further critical care and thoracic surgery consultation.
[2019-04-06] MEDS: SODIUM CHLORIDE 0.9% 1,000 ML 1000 ML IV ×2 (01:46)
[2019-04-06] MEDS: NOREPINEPHRINE 4 MG in DEXTROSE 5% IN WATER 250 ML 30.48 ML IV (01:46)
--- NOTE | 2019-04-06 01:47 | PC.NURSE ---
0100 30f chest tube rt side placed by MD Barajas with >2500ml immediate return of purulent foul smelling drainage 50mcg fentanyl given per order pt tolerated well
[2019-04-06 02:24] LABS: Lactate 2HR (Lactic Acid Rflx) 3.2 mmol/L (0.7-2.1)
--- NOTE | 2019-04-06 02:41 | PC.NURSE ---
0210 7.5 ET tube placed by Gianni CEDILLO 100mg rocuronium 20mg amidate given per order placement confirmed pcxr 24 at teeth with good color change and chest rise
--- NOTE | 2019-04-06 02:45 | PC.NURSE ---
0100 rt side IJ triple lumen central line placed and dressed by Jenn CEDILLO placement confirmed by pcxr + blood return flushes with no resis
== END 2019-04-06 02:51 | disposition short-term general hospital (02) ==
PROVIDERS: Emergency Provider Emergency Medicine
DX: J86.9 Pyothorax without fistula (principal); I48.20 Chronic atrial fibrillation, unspecified; E87.1 Hypo-osmolality and hyponatremia; J96.01 Acute respiratory failure with hypoxia; T68.XXXA Hypothermia, initial encounter; A41.9 Sepsis, unspecified organism; N17.9 Acute kidney failure, unspecified; I95.9 Hypotension, unspecified; R41.82 Altered mental status, unspecified
CPT/HCPCS: 31500; 32555; 36415; 36573; 36600; 51701; 71045; 80053; 81001; 82550; 82805; 83605; 84145; 84484; 85025; 87040; 87070; 87075; 87077; 87086; 87186; 87205; 93005; 93010; 94660; 94799; 96365; 96366; 96367; 96368; 96375; 99285; 99291; 99292; J2060; J2543